=== PATIENT | male | born 1960 | race Caucasian/White ===

== ENCOUNTER → 2016-07-06 | Outpatient (CLI) | payer BC ==
[~2016-07-06] MED LIST: ALPR1TAB3 PO; ATEN-173 PO; DICL-201 PO; ESCI1TAB10 PO; LISI-725 PO
[2016-07-06 18:10] LABS: ALT/SGPT 30 U/L (12-78); AST/SGOT 20 U/L (15-37); BLOOD UREA NITROGEN 24 mg/dl (7-18); BUN/CREATININE RATIO 25.6 (10-20); CALCIUM 8.9 mg/dl (8.5-10.1); CARBON DIOXIDE 30 mmol/L (21-32); CHLORIDE 105 mmol/L (98-107); CREATININE 0.95 mg/dl (0.60-1.40); GLUCOSE 90 mg/dl (70-99); POTASSIUM 4.1 mmol/L (3.5-5.1); SODIUM 141 mmol/L (136-145)
[2016-07-06 18:15] LABS: CHOLESTEROL 197 mg/dl (0-200); CHOLESTEROL/HDL RATIO 3.2; HDL CHOLESTEROL 62 mg/dl; LDL CHOLESTEROL CALCULATED 124 mg/dl; PROSTATE SPECIFIC ANTIGEN 0.495 ng/ml (0.000-4.000); TRIGLYCERIDES 55 mg/dl (0-150); VERY LOW DENSITY LIPOPROT CALC 11 mg/dl
== END | disposition home or self-care (01) ==
LOC: C.LABMFLN 09:45
PROVIDERS: ATTEND Family Medicine
DX: I10 Essential (primary) hypertension (principal); E78.5 Hyperlipidemia, unspecified; Z12.5 Encounter for screening for malignant neoplasm of prostate

== ENCOUNTER → 2017-03-24 | Day surgery (SDC) | payer BC, OTHER ==
[2017-03-10 13:06] VITALS: Ht 170.2 cm; Wt 77.3 kg
[~2017-03-24] VITALS: Ht 170.2 cm; Wt 77.3 kg
[~2017-03-24] MED LIST changes: +ASPCH81X PO; -ATEN-173 PO; -DICL-201 PO; -ESCI1TAB10 PO; +ESCI1TAB6 PO; +FENO1TAB PO; +LIDOCAINE HCL 2% 2 ML VIAL (20MG/ML) ONE; -LISI-725 PO; +LOSA50TA6 PO; +PROPOFOL IV EMULSION 10 MG/ML 20 ML VIAL IV ONE; +SODIUM CHLORIDE 0.9% 500ML 500 ML IV ONE
[2017-03-24 09:11] VITALS: TEMP 36.4
--- NOTE | 2017-03-24 09:56 | Endo History and Physical ---
History & Physical Date of Service: Mar 24, 2017. Chief Complaint: Screening Referring Physician: Arturo Bear History of Present Illness 56 yo CM who presents for screening colonoscopy. Past Surgical History Hx Cardiac Surgery: No Hx Internal Defibrillator: No Hx Pacemaker: No Hx Abdominal Surgery: Yes (INGUINAL HERNIA X 2, UMBILICAL HERNIA) Hx of Implantable Prosthesis: No Hx Post-Op Nausea and Vomiting: No Hx Cancer Surgery: No Hx Thoracic Surgery: No Hx Orthopedic: No Hx Urinary Tract Surgery: Yes (LITHOTRIPSY) Family History IBD Social History Smoking Status: Never Smoker Hx Substance Use: No Hx Alcohol Use: Yes (OCCASIONALLY) Allergies Coded Allergies: No Known Allergies (Unverified , 03/10/17) Current Medications Reported Home Medications Medications Dose Route/Sig Max Daily Dose Days Date Category Xanax (Alprazolam) 1 Mg Tab 0.5 Tab PO Q6H PRN 03/10/17 Reported Tricor (Fenofibrate) 160 Mg Tab 160 Mg PO HS 03/10/17 Reported Lexapro (Escitalopram Oxalate) 5 Mg Tab 5 Mg PO QAM 03/10/17 Reported Cozaar (Losartan Potassium) 50 Mg Tab 50 Mg PO QAM 03/10/17 Reported Aspirin Chewable (Aspirin) 81 Mg Chew 81 Mg PO QAM 03/10/17 Reported Vital Signs Weight (Kilograms): 77.27 Height (Feet): 5 Height (Inches): 7 Date Time Temp Pulse Resp B/P (MAP) Pulse Ox O2 Delivery O2 Flow Rate FiO2 03/24/17 09:11 36.4 54 16 145/90 (108) 94 Room Air Physical Exam General Appearance: WD/WN, no apparent distress Respiratory/Chest: Auscultation: breath sounds normal Cardiovascular: Heart Auscultation: RRR Abdomen: Bowel Sounds: normal Inspection & Palpation: soft, non-distended, no tenderness, guarding & rebound Assessment and Plan Assessment: 56 yo CM who presents for screening colonoscopy. Plan: Proceed with colonoscopy.
--- NOTE | 2017-03-24 10:39 | Discharge Instructions ---
Endoscopy Patient Instructions Date / Procedure(s) Performed Mar 24, 2017. Colonoscopy Allergy Information Coded Allergies: No Known Allergies (Unverified , 03/10/17) Discharge Date / Findings Mar 24, 2017. Diverticulosis Internal hemorrhoids Medication Instructions OK to resume all medications today as prescribed Reported Home Medications Medications Dose Route/Sig Max Daily Dose Days Date Category Xanax (Alprazolam) 1 Mg Tab 0.5 Tab PO Q6H PRN 03/10/17 Reported Tricor (Fenofibrate) 160 Mg Tab 160 Mg PO HS 03/10/17 Reported Lexapro (Escitalopram Oxalate) 5 Mg Tab 5 Mg PO QAM 03/10/17 Reported Cozaar (Losartan Potassium) 50 Mg Tab 50 Mg PO QAM 03/10/17 Reported Aspirin Chewable (Aspirin) 81 Mg Chew 81 Mg PO QAM 03/10/17 Reported Provider Instructions Activity Restrictions - No exercising or heavy lifting for 24 hours. - Do not drink alcohol the day of the procedure. - Do not drive a car or operate machinery until the day after the procedure. - Do not make any important decisions or sign important papers in 24 hours after the procedure. Following Day: - Return to full activity which may include returning to work/school. Diet Start your diet with liquids and light foods (jello, soup, juice, toast). Then eat your usual diet if not nauseated. Treatment For Common After Affects For mild abdominal pain, bloating, or excessive gas: - Rest - Eat lightly - Lie on right side Follow-Up Information Follow-up with Arturo Bear as scheduled Anesthesia Information What You Should Know You have had a procedure that required some medicine to reduce anxiety and discomfort. This treatment is called moderate sedation. After receiving the treatment, you may be sleepy, but you will be able to breathe on your own. The effects of the treatment may last for several hours. Follow these instructions along with Activity/Diet recommendations noted above: * Do NOT do anything where dizziness or clumsiness would be dangerous. * Rest quietly at home today, then you can be up and about tomorrow. * Have a responsible person stay with you the rest of today. * You may have had an I.V. today. If so, you may take the dressing off later today. Recommendations Call your doctor if: * Trouble breathing * Continuous vomiting for more than 24 hours * Temperature above 101 degrees * Severe abdominal pain or bloating * Pain not relieved by pain medicine ordered * There is increased drainage or redness from any incision * A large amount of rectal bleeding greater than 2-3 tablespoons. (If you had a polyp/s removed or have hemorrhoids, a small amount of blood - from the rectum is to be expected.) * You have any unanswered questions or concerns. IN THE EVENT OF A SERIOUS EMERGENCY, GO TO THE NEAREST EMERGENCY ROOM Your discharge instructions were prepared by provider Joey Altamirano. Patient Instructions Signature Page Willard Ramirez Patient (or Guardian) Signature/Date: I have read and understand the instructions given to me by my caregivers. Caregiver/RN/Doctor Signature/Date: The above-named patient and/or guardian has received patient instructions on this date. + Original Patient Signature Page (only) stays with chart. Please make copy for patient.
--- NOTE | 2017-03-24 11:09 | GI REPORT ---
Procedure Date: 03/24/2017 10:20 AM Procedure: Colonoscopy Indications: Screening for colorectal malignant neoplasm Medicines: Monitored Anesthesia Care Complications: No immediate complications. Estimated Blood Loss: Estimated blood loss: none. Procedure: Pre-Anesthesia Assessment: - Prior to the procedure, a History and Physical was performed, and patient medications and allergies were reviewed. The patient's tolerance of previous anesthesia was also reviewed. The risks and benefits of the procedure and the sedation options and risks were discussed with the patient. All questions were answered, and informed consent was obtained. Prior Anticoagulants: The patient has taken aspirin, last dose was 2 days prior to procedure. ASA Grade Assessment: II - A patient with mild systemic disease. After reviewing the risks and benefits, the patient was deemed in satisfactory condition to undergo the procedure. After I obtained informed consent, the scope was passed under direct vision. Throughout the procedure, the patient's blood pressure, pulse, and oxygen saturations were monitored continuously. The scope was introduced through the anus and advanced to the terminal ileum. The colonoscopy was performed without difficulty. The patient tolerated the procedure well. The quality of the bowel preparation was good. The terminal ileum, ileocecal valve, appendiceal orifice, and rectum were photographed. Findings: The perianal and digital rectal examinations were normal. Multiple small-mouthed diverticula were found in the sigmoid colon. Non-bleeding internal hemorrhoids were found during retroflexion. The hemorrhoids were small. Impression: - Diverticulosis in the sigmoid colon. - Non-bleeding internal hemorrhoids. - No specimens collected. Recommendation: - Resume previous diet. - Continue present medications. - Repeat colonoscopy in 10 years for surveillance. - Return to primary care physician as previously scheduled. Joey Altamirano, DO 03/24/2017 10:41:49 AM This report has been signed electronically. Note Initiated On: 03/24/2017 10:20 AM I attest to the content of the Intraoperative Record and orders documented therein, exceptions below
--- NOTE | 2017-03-24 11:11 | Anesthesiology Progress Note ---
Anesthesia Post Op Note Date & Time Mar 24, 2017 at 11:10 Vital Signs Pain Intensity: 0 Vital Signs Past 12 Hours Date Time Temp Pulse Resp B/P (MAP) Pulse Ox O2 Delivery O2 Flow Rate FiO2 03/24/17 10:57 47 18 113/73 (86) 96 Room Air 03/24/17 10:43 52 18 98/59 (72) 95 Room Air 03/24/17 09:11 36.4 54 16 145/90 (108) 94 Room Air Notes Mental Status: alert / awake / arousable, participated in evaluation Pt Amnestic to Procedure: Yes Nausea / Vomiting: adequately controlled Pain: adequately controlled Airway Patency, RR, SpO2: stable & adequate BP & HR: stable & adequate Hydration State: stable & adequate Anesthetic Complications: no major complications apparent
[2017-03-24 11:12] VITALS: BP 130/80; PULSE 46; O2SAT 97
== END | disposition home or self-care (01) ==
LOC: C.GI 08:43
PROVIDERS: ATTEND Internal Medicine
DX: Z12.11 Encounter for screening for malignant neoplasm of colon (principal); K57.30 Diverticulosis of large intestine without perforation or abscess without bleeding; K64.8 Other hemorrhoids; I10 Essential (primary) hypertension; E78.5 Hyperlipidemia, unspecified; Z98.890 Other specified postprocedural states; Z79.82 Long term (current) use of aspirin; Z79.899 Other long term (current) drug therapy